=== PATIENT | female | born 2005 | race Caucasian/White ===

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

== ENCOUNTER 2024-01-02 09:25 | Outpatient (AMB) | payer OTHER, SELFPAY ==
--- NOTE | 2024-01-02 09:29 | MHC.OFFVIS ---
Intake Visit Reasons: Enlarging fibroadenoma Intake Note: Patient scheduled today's appointment with concerns about enlarging fibroadenoma on Rt br. Patient c/o: stinging sensation. Denies pain. Currently breast feeding. Stabilizer Operator Required: No Accompanied by: Adebayo mcknightienadrianna Allergies No Known Allergies Allergy (Verified 01/02/24 09:34) HPI Comments Details: Patient presents with her significant other and her infant child. Patient was seen last year for a symptomatic enlarging right breast fibroadenoma. This was to have been excised in February last year but the patient was unexpectedly found to be and the procedure was canceled. Sensory an early time, the mass has markedly increased in size and become more symptomatic and the patient would like to have it excised. Her is 3-month-old and she plans on completing breast-feeding when an antritis 6-month-old. The plan is to arrange for excision at that time. [facility] Medical History Missed menses Positive test test negative Anxiety and depression Surgical History (Updated 01/02/24 @ 09:35 by MARK Pride) [place] teeth extracted No pertinent past surgical history Family History Mother No problems noted. Father No problems noted. Social History Household Members: Family Household Members Other:: Lives with mom, step-dad and brother (Colin Saucedo). Pets: 1 dog Both parents involved: Yes (sees dad on weekends) Alcohol intake: never Patient Tobacco Use Status: Never used Tobacco Cognitive needs: No Hearing needs: No Vision needs: No Female Reproductive History Menstrual Age of Menarche: 11 Physical Exam Chest Other: Right breast fibroadenoma has definitely increased in size since last year. No other breast pathology demonstrated bilaterally. No cervical periclavicular axillary adenopathy bilaterally. GI Other: Abdomen is soft, corpulent, benign Assessment & Plan Assessment & Plan (1) Fibroadenoma of right breast: Code(s): D24.1 - Benign neoplasm of right breast Category: Surgical Plan Current plan is to have the patient revisit us in 3 months' time to make arrangements for excision of her symptomatic enlarging right breast fibroadenoma. All questions answered. Patient will see me at that time or p.r.n.. Coding Level of Care Code Est Pt Level 4 (86610) Diagnoses 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
== END 2024-01-02 09:43 | disposition home or self-care (01) ==
PROVIDERS: PCP Pediatrics; Visit Provider Surgery
DX: D24.1 Benign neoplasm of right breast (principal)
CPT/HCPCS: 99214

== ENCOUNTER → 2024-01-02 09:25 | Outpatient (BNVA) | payer OTHER, SELFPAY | PROVIDERS: PCP Pediatrics; Visit Provider Surgery | DX: D24.1 Benign neoplasm of right breast (principal) | CPT/HCPCS: 99212 ==

== ENCOUNTER 2024-08-17 11:30 | Outpatient (AMB) | payer OTHER, SELFPAY ==
--- NOTE | 2024-08-17 11:58 | MHC.OFFWIV ---
Intake Vital Signs 08/17/24 12:06 Weight 214 lb BP 110/74 Blood Pressure Location Rt brachial Position Sitting Pulse 98 Pulse Source Pulse Oximeter Pulse Oximetry (%) 98 Oxygen Delivery Method Room Air Intake Visit Reasons: EP Lump in RT breast Intake Note: Patient here for lump on right breast that has been present for about 48 hrs, it started w/some redness around it and is no longer red but is slightly tender. Patient Tobacco Use Status: Never used Tobacco Allergies No Known Allergies Allergy (Verified 08/17/24 12:07) Do you need a note to return to daycare/school/sports/work: No HPI EP Lump in RT breast HPI Details Patient here for lump on right breast that has been present for about 48 hrs, it started w/some redness around it and is no longer red but is slightly tender. [facility] Medical History Missed menses Positive test test negative Anxiety and depression Surgical History (Updated 01/02/24 @ 09:35 by MARK Pride) [place] teeth extracted No pertinent past surgical history Family History Mother No problems noted. Father No problems noted. Social History Household Members: Family Household Members Other:: Lives with mom, step-dad and brother (Colin Saucedo). Pets: 1 dog Both parents involved: Yes (sees dad on weekends) Alcohol intake: never Patient Tobacco Use Status: Never used Tobacco Cognitive needs: No Hearing needs: No Vision needs: No Female Reproductive History Menstrual Age of Menarche: 11 Physical Exam Vital Signs: Last Vital Signs Pulse 98 08/17/24 12:06 BP 110/74 08/17/24 12:06 Pulse Ox 98 08/17/24 12:06 Oxygen Delivery Method Room Air 08/17/24 12:06 Results Reviewed Results Reviewed: Laboratory Last Values Influenza Type A (PCR) NEGATIVE (Negative) 08/17/24 11:30 Influenza Type B (PCR) NEGATIVE (Negative) 08/17/24 11:30 RSV RNA Qual (PCR) NEGATIVE (Negative) 08/17/24 11:30 SARS-CoV-2 RNA (RT-PCR) NEGATIVE (Negative) 08/17/24 11:30 Assessment & Plan Assessment & Plan Orders: Orders SARS-CoV2/FLU/RSV Today J06.9 - Acute upper respiratory infection, unspecified Coding
[2024-08-17 12:06] VITALS: BP 110/74; PULSE 98; O2SAT 98
[2024-08-17 15:12] LABS: Influenza A PCR NEGATIVE (Negative); Influenza B PCR NEGATIVE (Negative); Resp Syncy Virus RNA Qual PCR NEGATIVE (Negative); SARS COV2 PCR INHOUSE NEGATIVE (Negative)
== END 2024-08-17 12:49 | disposition home or self-care (01) ==
PROVIDERS: PCP Pediatrics; Visit Provider Physician Assistant Medical
DX: J06.9 Acute upper respiratory infection, unspecified (principal)

== ENCOUNTER → 2024-08-17 11:30 | Outpatient (BNVA) | payer OTHER, SELFPAY | PROVIDERS: PCP Pediatrics; Visit Provider Physician Assistant Medical | DX: J06.9 Acute upper respiratory infection, unspecified (principal); N64.4 Mastodynia | CPT/HCPCS: 0241U ==

== ENCOUNTER 2024-08-20 13:13 | Outpatient (AMB) | payer OTHER, SELFPAY ==
--- NOTE | 2024-08-20 13:23 | MHC.OFFVIS ---
Vital Signs 08/20/24 13:31 Weight 215 lb BP 128/60 Blood Pressure Location Rt brachial Position Sitting Pulse 100 Intake Visit Reasons: lump (R) Breast Intake Note: Patient scheduled today's appointment with concerns Rt breast lump. Reports site previously biopsied and was told results were benign. Patient felt a lump about 4-5 days. Was told by walk in clinic physician fibromadenoma could be growing. Patient still breast feeding. Patient c/o: rt br feels tender and bruised. Denies redness, rash. Snow Ranger Required: No Accompanied by: baby daughter Allergies No Known Allergies Allergy (Verified 08/20/24 13:31) HPI Comments Details: Patient is here for evaluation of a right upper outer quadrant fibroadenoma which has been diagnosed with tissue sampling in the past. She is currently and noticed that is becoming more symptomatic. No other breast symptoms associated with this area. As noted above patient is currently lactating. [facility] Medical History Missed menses Positive test test negative Anxiety and depression Surgical History (Updated 01/02/24 @ 09:35 by MAKR Pride) [place] teeth extracted No pertinent past surgical history Family History Mother No problems noted. Father No problems noted. Social History Household Members: Family Household Members Other:: Lives with mom, step-dad and brother (Colin Saucedo). Pets: 1 dog Both parents involved: Yes (sees dad on weekends) Alcohol intake: never Patient Tobacco Use Status: Never used Tobacco Cognitive needs: No Hearing needs: No Vision needs: No Female Reproductive History Menstrual Age of Menarche: 11 Physical Exam Vital Signs: Last Vital Signs Pulse 100 08/20/24 13:31 BP 128/60 08/20/24 13:31 Chest Other: No cervical periclavicular or axillary adenopathy bilaterally. Left breast negative. Right breast demonstrates at the area of roughly 11:00 o'clock the fibroadenoma which patient thinks has increased in size. Suspicious roughly 2 cm. Remainder of breast exam negative. Assessment & Plan Assessment & Plan (1) Fibroadenoma of right breast: Code(s): D24.1 - Benign neoplasm of right breast Category: Surgical Plan Patient thinks she will continue to breastfeed/lactate until September. At present, was treated conservatively. She will see me at the end of October to give her breast time to recover and received and then indirect further therapy regarding this fibroadenoma based on her symptomatology. During this interim, should be any other symptoms including pain, increase in size of the lesion skin changes etc. patient he has been instructed to contact the office otherwise she will see me as directed. Coding Level of Care Code Est Pt Level 4 (20435) Diagnoses 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
[2024-08-20 13:31] VITALS: BP 128/60; PULSE 100
== END 2024-08-20 13:38 | disposition home or self-care (01) ==
PROVIDERS: PCP Pediatrics; Visit Provider Surgery
DX: D24.1 Benign neoplasm of right breast (principal)
CPT/HCPCS: 99214

== ENCOUNTER → 2024-08-20 13:13 | Outpatient (BNVA) | payer OTHER, SELFPAY | PROVIDERS: PCP Pediatrics; Visit Provider Surgery | DX: D24.1 Benign neoplasm of right breast (principal) | CPT/HCPCS: 99212 ==

== ENCOUNTER 2024-12-10 13:28 | Outpatient (AMB) | payer OTHER, SELFPAY ==
--- NOTE | 2024-12-10 13:36 | A.OFFVIS_ITS ---
Vital Signs 12/10/24 13:40 Weight 220 lb BP 117/60 Blood Pressure Location Rt brachial Position Sitting Pulse 88 Intake Visit Reasons: Breast exam~ Rt br lump Intake Note: Patient here for breast exam. No longer breast feeding. Patient c/o: no concerns. Denies br rash, nipple discharge. Artist Representative Required: No Accompanied by: baby son Allergies No Known Allergies Allergy (Verified 08/20/24 13:31) HPI Comments Details: Patient presents for follow-up for a biopsy-proven right upper outer quadrant breast fibroadenoma. She is currently her baby who was approached in 1 year's age. The right breast lesion is essentially the same according to the patient but he would like to consider having a removed once her is completed. No other new breast symptoms or complaints. [facility] Medical History Missed menses Positive test test negative Anxiety and depression Surgical History (Updated 01/02/24 @ 09:35 by MARK Pride) [place] teeth extracted No pertinent past surgical history Family History Mother No problems noted. Father No problems noted. Social History Household Members: Family Household Members Other:: Lives with mom, step-dad and brother (Colin Saucedo). Pets: 1 dog Both parents involved: Yes (sees dad on weekends) Alcohol intake: never Patient Tobacco Use Status: Never used Tobacco Cognitive needs: No Hearing needs: No Vision needs: No Female Reproductive History Menstrual Age of Menarche: 11 Physical Exam Vital Signs: Last Vital Signs Pulse 88 12/10/24 13:40 BP 117/60 12/10/24 13:40 Chest Other: Left breast exam currently patient was . Left breast no obvious mass, discharge, adenopathy or skin changes. Right breast upper-outer quadrant demonstrates roughly 3 x 2 cm mass status quo from last exam. No other skin changes or periclavicular axillary adenopathy. GI Other: Abdomen Lenn[place], soft, benign Assessment & Plan Assessment & Plan (1) Fibroadenoma of right breast: Code(s): D24.1 - Benign neoplasm of right breast Category: Surgical Plan Patient will contact me when she is ready to have this excised. All questions answered. She is encouraged to do occasional self-breast exams. Coding Level of Care Code Est Pt Level 4 (06496) Diagnoses 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
[2024-12-10 13:40] VITALS: BP 117/60; PULSE 88
--- OUTSIDE RECORDS SUMMARY | 2024-12-10 15:56 | XMS_ITS ---
Author Name [facility] Organization Unknown Care Team Organization Name Specialty Phone Email Start Date End Da te [employer] 12/16/2023
== END 2024-12-10 13:54 | disposition home or self-care (01) ==
LOC: HO.HGS 13:29
PROVIDERS: PCP Pediatrics; Visit Provider Surgery
DX: D24.1 Benign neoplasm of right breast (principal)
CPT/HCPCS: 99214

== ENCOUNTER → 2024-12-10 13:28 | Outpatient (BNVA) | payer OTHER, SELFPAY | PROVIDERS: PCP Pediatrics; Visit Provider Surgery | DX: D24.1 Benign neoplasm of right breast (principal) | CPT/HCPCS: 99212 ==

== ENCOUNTER 2025-02-06 13:11 | Emergency (ER) | payer OTHER, SELFPAY ==
--- NOTE | 2025-02-06 13:14 | ECG_ITS ---
Test Reason : CHST PAIN Blood Pressure : */* mmHG Vent. Rate : 92 BPM Atrial Rate : 92 BPM P-R Int : 122 ms QRS Dur : 102 ms QT Int : 356 ms P-R-T Axes : 12 2 28 degrees QTcB Int : 440 ms Normal sinus rhythm Normal ECG No previous ECGs available Referred By: Generic ED Physician Electronically Signed By: Saurabh Umanzor
[2025-02-06 13:16] VITALS: BP 135/92; PULSE 100; RESP 18; TEMP 36.4; O2SAT 98; BMI 35.2
--- NOTE | 2025-02-06 13:16 | ED_ITS ---
HPI - General Adult General Chief complaint: Chest Pain Stated complaint: Chest pain, sent from urgent care Time Seen by Provider: 02/06/25 17:26 Source: patient Mode of arrival: ambulatory Limitations: no limitations History of Present Illness ED Provider: HPI narrative: pt 19 years old with history of anxiety been having mid chest pain for last few months happening mostly in the nighttime was seen in the urgent care center sent the patient here for further evaluation no family history of sudden cardiac no history of shortness a breath no history of leg swelling patient does have some acid problems not taking any medication Related Data Home Medications ?Medication ?Instructions ?Recorded ?Confirmed desogestrel 0.15 mg-ethinyl 1 tab PO DAILY 08/20/24 estradiol 0.03 mg tablet (Enskyce) Previous Rx's ?Medication ?Instructions ?Recorded omeprazole 40 mg capsule,delayed 40 mg PO DAILY #30 ca ps 02/06/25 release Allergies Allergy/AdvReac Type Severity Reaction Status Date / Time No Known Allergies Allergy Verified 02/06/25 13:20 Review of Systems 2 Review of Systems: Yes all other systems are reviewed and are negative [facility] Past Medical History Medical History (Updated 02/06/25 @ 17:52 by Simba Martinez MD) Missed menses Positive test test negative Anxiety and depression Surgical History (Updated 01/02/24 @ 09:35 by MARK Pride) [place] teeth extracted No pertinent past surgical history Family History Family History Mother No problems noted. Father No problems noted. Social History Social History Household Members: Family Household Members Other:: Lives with mom, step-dad and brother (Colin Saucedo). Pets: 1 dog Alcohol intake: never Patient Tobacco Use Status: Never used Tobacco Advance Directives: No Advance Directives Information Provided: Yes Cognitive needs: No Hearing needs: No Vision needs: No Physical Exam ED Vital Signs: Vital Signs - 24 hr 02/06/25 13:16 02/06/25 17:17 02/06/25 17:57 Temperature 97.5 F 98.1 F 98.4 F Pulse Rate 100 86 82 Respiratory Rate 18 20 15 Blood Pressure 135/92 H 118/72 118/72 Pulse Oximetry 98 100 98 Oxygen Delivery Method Room Air Room Air Room Air BMI result Body Mass Index 35.2 Appearance: Alert. Oriented X3. No acute distress. Eyes: no pallor or icterus ENT: Pharynx normal Oral Mucosa moist tympanic membrane intact no erythema, Neck: Normal inspection. Neck supple. CVS: Normal heart rate and rhythm. Pulses normal. Respiratory: No respiratory distress. Equal air entry bilateral, no wheezing/rales/rhonchi Abd: soft, not tender Skin: Skin warm and dry. Normal skin color. Normal skin turgor. Extremities: No lower extremity edema, no calf tenderness Neuro: Oriented X 3. Course Course Course Narrative: 02/06/25 1320 ALAN Feldman This is a Rapid Medical Examination (RME) performed by Derik Montenegro PA-C in triage. Full HPI, ROS, assessment and treatment plan per primary provider in the Main ED. Hx: 19 yo F hx anxiety, depression, eczema here w/ intermittent chest pain x2 weeks. pain began to central chest, now moving to right upper chest/ shoulder. pain occurs primarily at night, sometimes pressure sometimes sharp sensation. drinks caffeine daily. feels like her anxiety, not on meds for this. seen at with normal EKG , sent here for cardiac labs. no personal cardiac hx. PE/vitals: well appearing Plan: ekg, labs Medical Decision Making Medical Decision Making [facility] Narrative: Patient has atypical chest pain with heart score of 0 with normal EKG normal troponin likely from esophageal spasm from acid reflux patient advised to take Prilosec and follow with PCP Differential Diagnosis Differential Diagnoses: The differential diagnosis associated with the presentation includes Lab Data [facility] Lab Attestation statement: I reviewed the patient's lab results. 02/06/25 13:41 02/06/25 13:41 Labs: Lab Results 02/06/25 Range/Units 13:41 WBC 9.0 (4.8-10.8) X10*3/uL RBC 4.73 (4.20-5.50) X10*6/uL Hgb 13.4 (12.0-16.0) g/dl Hct 39.6 (37.0-47.0) % MCV 83.7 (80.0-98.0) fL MCH 28.3 (27.0-33.0) pg MCHC 33.8 (31.0-35.0) g/dl RDW 12.5 (11.0-16.0) % Plt Count 264 (160-400) X10*3/uL MPV 10.2 (9.4-12.3) fL Immature Gran % (Auto) 0.4 (0.0-0.4) % Neut % (Auto) 70.1 (45-73) % Lymph % (Auto) 22.9 (20-40) % [place] % (Auto) 4.2 (2-11) % Eos % (Auto) 1.6 (0-4) % Baso % (Auto) 0.8 (0-2) % Lymph # (Auto) 2.1 (1.2-4.9) X10*3/uL [place] # (Auto) 0.4 (0.1-1.2) X10*3/uL Eos # (Auto) 0.1 (0.0-0.4) X10*3/uL Baso # (Auto) 0.1 (0.0-0.2) X10*3/uL Abs Immat Gran (auto) 0.04 H (0.00-0.03) X10*3/uL Absolute Neuts (auto) 6.3 (2.0-8.3) x10*3/uL Absolute Nucleated RBC 0.000 (0.0-0.012) X10*3/uL Nucleated RBC % (auto) 0.0 (0.0-0.2) /100WBC Sodium 141 (135-145) mmol/L Potassium 3.8 (3.3-5.1) mmol/L Chloride 109 H (96-108) mmol/L Carbon Dioxide 23 (22-29) mmol/L Anion Gap 13 (12-20) BUN 10 (9-16) mg/dL Creatinine 0.71 (0.5-1.4) mg/dL Estim Creat Clear Calc 149.8 Estimated GFR > 60 Random Glucose 108 (60-115) mg/dL Calcium 9.8 (8.4-10.2) mg/dL Magnesium 1.9 (1.6-2.6) mg/dL Total Bilirubin 0.4 (0.0-1.0) mg/dL AST 20 (5-31) U/L ALT 11 (0-31) U/L Alkaline Phosphatase 117 (39-117) U/L Troponin I High Sens < 2.7 (<3.5-17.0) ng/L Total Protein 7.4 (6.5-8.0) g/dL Albumin 4.6 (3.5-5.0) g/dL Independent Interpretation I performed an independent interpretation of an: EKG (Normal sinus rhythm with heart rate 92 beats per minute normal intervals normal axis no acute ST-T no acute ischemia) Discharge Plan Discharge Clinical Impression: Atypical chest pain Patient Disposition: Home, Self-Care Instructions: Chest Pain (ED) Additional Instructions: Your chest pain is unlikely from the heart likely from gastric reflux Take Prilosec daily as prescribed Follow up with your PCP Avoid fried/spicy foods Prescriptions: New omeprazole 40 mg capsule,delayed release(DR/EC) 40 mg PO DAILY Qty: 30 0RF No Action desogestrel-ethinyl estradiol [Enskyce] 0.15-0.03 mg tablet 1 tab PO DAILY Print Language: Monegasque
[2025-02-06 13:45] LABS: MANUAL DIFF FLAG NO
[2025-02-06 13:48] LABS: Basophils Absolute Auto 0.1 X10*3/uL (0.0-0.2); Basophils Percent Auto 0.8 % (0-2); Eosinophils Absolute Auto 0.1 X10*3/uL (0.0-0.4); Eosinophils Percent Auto 1.6 % (0-4); Hematocrit 39.6 % (37.0-47.0); Hemoglobin 13.4 g/dl (12.0-16.0); Imm Gran Abs Auto 0.04 X10*3/uL (0.00-0.03); Imm Gran Pct Auto 0.4 % (0.0-0.4); Lymphocytes Absolute Auto 2.1 X10*3/uL (1.2-4.9); Lymphocytes Percent Auto 22.9 % (20-40); Mean Corpuscular HGB Conc 33.8 g/dl (31.0-35.0); Mean Corpuscular Hemoglobin 28.3 pg (27.0-33.0); Mean Corpuscular Volume 83.7 fL (80.0-98.0); Mean Platelet Volume 10.2 fL (9.4-12.3); Monocytes Absolute Auto 0.4 X10*3/uL (0.1-1.2); Monocytes Percent Auto 4.2 % (2-11); Neutrophils Absolute Auto 6.3 x10*3/uL (2.0-8.3); Neutrophils Percent Auto 70.1 % (45-73); Platelet Count 264 X10*3/uL (160-400); Red Blood Count 4.73 X10*6/uL (4.20-5.50); Red Cell Distribution Width 12.5 % (11.0-16.0)
[2025-02-06 14:02] LABS: Alanine Aminotransferase 11 U/L (0-31); Albumin Level 4.6 g/dL (3.5-5.0); Alkaline Phosphatase 117 U/L (39-117); Anion Gap 13 (12-20); Aspartate Amino Transferase 20 U/L (5-31); Bilirubin Total 0.4 mg/dL (0.0-1.0); Blood Urea Nitrogen 10 mg/dL (9-16); Calcium 9.8 mg/dL (8.4-10.2); Carbon Dioxide 23 mmol/L (22-29); Chloride 109 mmol/L (96-108); Creatinine Clr Calc Pharmacy 149.8; Estimated Glomerular Filt Rate > 60; Glucose Random 108 mg/dL (60-115); Magnesium 1.9 mg/dL (1.6-2.6); Potassium 3.8 mmol/L (3.3-5.1); Sodium 141 mmol/L (135-145); Total Protein 7.4 g/dL (6.5-8.0)
[2025-02-06 14:11] LABS: Troponin-I High Sensitivity < 2.7 ng/L (<3.5-17.0)
[2025-02-06 17:17] VITALS: BP 118/72; PULSE 86; RESP 20; TEMP 36.7; O2SAT 100
[2025-02-06 17:57] VITALS: BP 118/72; PULSE 82; RESP 15; TEMP 36.9; O2SAT 98
[2025-02-06 18:10] VITALS: BP 118/72; PULSE 82; RESP 15; TEMP 36.9; O2SAT 98
== END 2025-02-06 18:11 | disposition home or self-care (01) ==
PROVIDERS: Physician Assistant Medical; Emergency Provider Internal Medicine; PCP Nurse Practitioner Family
DX: R07.89 Other chest pain (principal); M25.511 Pain in right shoulder; F41.8 Other specified anxiety disorders; Z79.899 Other long term (current) drug therapy
CPT/HCPCS: 36415; 80053; 83735; 84484; 85025; 93005; 99283; 99284

== ENCOUNTER → 2025-02-06 13:14 | Outpatient (BNV) | payer OTHER, SELFPAY | PROVIDERS: Emergency Provider Internal Medicine; PCP Nurse Practitioner Family; Visit Provider Internal Medicine Cardiovascular Disease | DX: R07.9 Chest pain, unspecified (principal) | CPT/HCPCS: 93010 ==

== ENCOUNTER 2025-02-10 09:22 | Outpatient (AMB) | payer OTHER, SELFPAY ==
--- NOTE | 2025-02-10 09:25 | MHC.PC.OV ---
Vital Signs 02/10/25 09:30 Height 5 ft 6 in Weight 220 lb BMI 35.5 BP 102/68 Blood Pressure Location Rt brachial Position Sitting Respiration 12 Pulse 78 Pulse Source Pulse Oximeter Temp 97.6 F Temp Source Oral Pulse Oximetry (%) 98 Oxygen Delivery Method Room Air Intake Visit Reasons: ER f/u from [facility] for Chest Pain Intake Note: [facility] ER Follow up. Patient also c/o eczema all over her body. Box Sealing Machine Feeder Required: No Allergies No Known Allergies Allergy (Verified 02/10/25 09:41) Medication List - Last Reconciled 02/10/25 by IVA Cox No Known Home Meds Tobacco use date assessed: 02/10/25 Dental Screening Dental Screen Date: 02/10/25 Did you have a dental visit in the last 12 months?: Yes Did you have a dental problem in the last 6 months where you did not have access to dental care?: No Was dental information given to patient?: Patient has dentist HPI HPI Comments History of Present Illness Details 19 Y/O F with Eczema, MDD, NATALI, GERD Social: in school, 1 dtr, age 1 Surgery: none Health Maintenance Tdap Pap Specialist None Here today as new patient to [facility], for HDF and for a CPE Went to [facility] ED 02/06/25 for atypical chest pain, found to be GERD. She was rx'd omeprazole 40mg however she did not start as she is Reports that her sx are well controlled, has known dietary triggers and is avoiding them w/ good effects Eczema - used triamcinolone in the past with + effect, needs refill LMP - 3 days ago, regular, not on OCP Denies chance of current R breast fibroadenoma needs to be removed, plans to have this done once done breast feeding had some swollen lymphnodes R neck that have resolved; admits anxiety and wants these examined today MDD/NATALI denies si/hi. not on meds; declined tx. Exam: General: Well developed, well nourished, in no acute distress. Appears stated age. Head: Normocephalic, atraumatic. Eyes: Pupils are equal, round and reactive to light and accommodation. Conjunctivae are clear. Vision grossly normal. Ears: TMs clear AU, EACS WNL Nose: Patent, without discharge. Mouth: There are no ulcers or lesions noted. No inflammation, no post nasal drip, no plaques nor exudates. Neck: Supple, no adenopathy or thyromegaly. Lungs: Clear to auscultation bilaterally. No rales, rhonchi or wheeze noted. Good air flow in all vazquez. Heart: Regular rate and rhythm. No murmurs, click, rubs or gallops are noted. Abdomen: Bowel sounds present in all quadrants. The abdomen is soft, nontender, with no masses or organomegaly noted. No hernias are noted. Musculoskeletal: Joints are nontender, without swelling, redness, or effusions. Range of motion is observed to be normal. Pulses: Peripheral pulses are equal and palpable bilaterally. Extremities: No clubbing, cyanosis nor edema is noted. Neurologic: Gait and station normal. Cranial Nerves 2-12 intact. Motor strength grossly symmetrical and intact. No sensory loss. Balance normal. Skin: No rashes, ulcers, or lesions noted. Turgor is good. Skin color is good. Hair and nails are without abnormalities. Eczema back of back and AC bilat Psych: Normal eye contact, affect and mood appropriate, and normal interactions. Patient is alert and appropriate to context. Plan: Avoid dietary triggers ok to use tums reviewed [facility] with PPI use, ok to use Omeprazole 20mg Triamcinolone RX sent RTO 1 year CPE sooner PRN Total time spent caring for the patient today was 40 minutes. This includes time spent before the visit reviewing the chart, time spent during the visit, and time spent after the visit on documentation, reviewing laboratory results, diagnostic imaging, medications, performing a medically necessary evaluation, counseling on diagnoses, care coordination, ordering appropriate tests, ordering appropriate medications, review of tests performed by other providers, reporting test results with the patient, communication with other healthcare providers. [facility] Medical History (Updated 02/10/25 @ 10:12 by MACY Cox) Anxiety and depression Surgical History (Updated 01/02/24 @ 09:35 by MARK Pride) Byron teeth extracted No pertinent past surgical history Family History Mother No problems noted. Father No problems noted. Social History Household Members: Family Household Members Other:: Lives with mom, step-dad and brother (Colin Saucedo). Pets: 1 dog Both parents involved: Yes (sees dad on weekends) Housing: House Alcohol intake: never Patient Tobacco Use Status: Never used Tobacco e-Cigarette/Vaping Use: Never Used Current occupational status: student Cognitive needs: No Hearing needs: No Vision needs: No Female Reproductive History Menstrual Age of Menarche: 11 Questionnaire PHQ-9 Over the last 2 weeks, how often have you been bothered by any of the following problems? 1. Little interest or pleasure in doing things: more than half the days 2. Feeling down, depressed, or hopeless: several days 3. Trouble falling or staying asleep, or sleeping too much: nearly every day 4. Feeling tired or having little energy: more than half the days 5. Poor appetite or overeating: nearly every day 6. Feeling bad about yourself - or that you are a failure or have let yourself or your family down: not at all 7. Trouble concentrating on things, such as reading the newspaper or watching television: not at all 8. Moving or speaking so slowly that other people could have noticed. Or the opposite - being so fidgety or restless that you have been moving around a lot more than usual: not at all 9. Thoughts that you would be better off or of hurting yourself in some way: not at all Total score: 11 Depression Screening Interpretation: Positive Depression Screening Follow-up: Existing condition and Declines treatment Depression Screening Done: Yes 33020 - PHQ-9 Billing: Yes Source: Developed by Drs. José Boo, Giselle Whitney, Todd Beasley and colleagues, with an educational papo from [employer]. Thrive Questionnaire Date Thrive assessed: 02/10/25 I am a: Patient What is your living situation today?: I have a steady place to live Within the past 12 months, did the food you bought not last and you didn't have the money to get more?: Sometimes True Within the past 12 months, did you worry whether your food would run out before you got money to buy more?: Sometimes True Do you have trouble paying for medicines?: No Do you have trouble getting transportation to medical appointments?: No Do you have trouble paying your heating and electricity bill?: No Do you have trouble taking care of your child, family member or friend?: Yes Do you have trouble with day-to-day activities such as bathing, preparing meals, shopping, managing finances, etc.?: Yes Are you currently unemployed and looking for a job?: Yes Are you interested in more education?: Yes Please select the resources that you would like help with: Childcare and Job search/training Currently or been in a relationship where the following occur: Controlled Emotionally THRIVE Score: 3 AUDIT C Alcohol Use Questionnaire (AUDIT-C) 1. How often do you have a drink containing alcohol?: Never 3. How often do you have six or more drinks on one occasion?: Never Total Score: 0 Score Reviewed/Action Taken: Yes NATALI-7 AMB Questionnaire NATALI-7 Date NATALI - 7 assessed: 02/10/25 Feeling nervous, anxious, or on edge: 1 = Several days Not being able to stop or control worryin = Several days Worrying too much about different things: 1 = Several days Trouble relaxin = Several days Being so restless that it is hard to sit still: 1 = Several days Becoming easily annoyed or irritable: 3 = Nearly every day Feeling afraid as if something awful might happen: 1 = Several days Total NATAIL-7 score (0-4 normal; 5-9 mild; 10-14 moderate; 15-21 severe): 9 Source: Developed by Drs. José Boo, Giselle Whitney, Todd Beasley and colleagues, with an educational papo from [employer]. NATALI-7 Assessment Billing NATALI-7 Assessment Tool: NATALI-7 Assessment 48360 Physical exam (Primary Care) Vital Signs: Last Vital Signs Temp 97.6 F 02/10/25 09:30 Pulse 78 02/10/25 09:30 Resp 12 02/10/25 09:30 BP 102/68 02/10/25 09:30 Pulse Ox 98 02/10/25 09:30 Oxygen Delivery Method Room Air 02/10/25 09:30 BMI result Body Mass Index 35.5 BMI Assessment/Plan discussion: High BMI High, discussed plan: lifestyle Tobacco/Smoking Status: Tobacco use Status Tobacco use date assessed 02/10/25 02/10/25 09:32 Patient Tobacco Use Status Never used Tobacco 02/10/25 09:32 e-Cigarette/Vaping Use Never Used 02/10/25 09:32 PHQ-9: PHQ-9 Score PHQ-9: Total score 11 02/10/25 09:32 Depression Screening Interpretation: Positive Depression Screening Follow-up: Existing condition and Declines treatment Thrive Assessment: Date of Thrive Assessment Date Thrive assessed 02/10/25 02/10/25 09:32 Currently or been in a relationship where the following occur: Controlled Emotionally Results Reviewed Results Reviewed: [address] [address] Emergency Department Note Signed Patient: Marisabel Tang MR#: [id number] : 2005 Acct:[id number] Age/Sex: 19 / F ADM Date: 02/06/25 Loc: HO.ED Date of Service: Attending Dr: cc: Dorothy HubbardP-BC~ HPI - General Adult General Chief complaint: Chest Pain Stated complaint: Chest pain, sent from urgent care Time Seen by Provider: 02/06/25 17:26 Source: patient Mode of arrival: ambulatory Limitations: no limitations History of Present Illness ED Provider: HPI narrative: pt 19 years old with history of anxiety been having mid chest pain for last few months happening mostly in the nighttime was seen in the urgent care center sent the patient here for further evaluation no family history of sudden cardiac no history of shortness a breath no history of leg swelling patient does have some acid problems not taking any medication Related Data Home Medications ?Medication ?Instructions ?Recorded ?Confirmed desogestrel 0.15 mg-ethinyl 1 tab PO DAILY 08/20/24 12/10/24 estradiol 0.03 mg tablet (Enskyce) Previous Rx's ?Medication ?Instructions ?Recorded omeprazole 40 mg capsule,delayed 40 mg PO DAILY #30 caps 02/06/25 release Allergies Allergy/AdvReac Type Severity Reaction Status Date / Time No Known Allergies Allergy Verified 02/06/25 13:20 Review of Systems Review of Systems: Yes all other systems are reviewed and are negative PMFSH Past Medical History Medical History (Updated 02/06/25 @ 17:52 by Simba Martinez MD) Missed menses Positive test test negative Anxiety and depression Surgical History (Updated 01/02/24 @ 09:35 by MARK Pride) Byron teeth extracted No pertinent past surgical history Family History Family History Mother No problems noted. Father No problems noted. Social History Social History Household Members: Family Household Members Other:: Lives with mom, step-dad and brother (Colin Saucedo). Pets: 1 dog Alcohol intake: never Patient Tobacco Use Status: Never used Tobacco Advance Directives: No Advance Directives Information Provided: Yes Cognitive needs: No Hearing needs: No Vision needs: No Physical Exam ED Vital Signs: Vital Signs - 24 hr 02/06/2513:16 02/06/2517:17 02/06/2517:57 Temperature 97.5 F 98.1 F 98.4 F Pulse Rate 100 86 82 Respiratory Rate 18 20 15 Blood Pressure 135/92 H 118/72 118/72 Pulse Oximetry 98 100 98 Oxygen Delivery Method Room Air Room Air Room Air BMI result Body Mass Index 35.2 Appearance: Alert. Oriented X3. No acute distress. Eyes: no pallor or icterus ENT: Pharynx normal Oral Mucosa moist tympanic membrane intact no erythema, Neck: Normal inspection. Neck supple. CVS: Normal heart rate and rhythm. Pulses normal. Respiratory: No respiratory distress. Equal air entry bilateral, no wheezing/rales/rhonchi Abd: soft, not tender Skin: Skin warm and dry. Normal skin color. Normal skin turgor. Extremities: No lower extremity edema, no calf tenderness Neuro: Oriented X 3. Course Course Course Narrative: 02/06/25 1320 ALAN Feldman This is a Rapid Medical Examination (RME) performed by Derik Montenegro PA-C in triage. Full HPI, ROS, assessment and treatment plan per primary provider in the Main ED. Hx: 19 yo F hx anxiety, depression, eczema here w/ intermittent chest pain x2 weeks. pain began to central chest, now moving to right upper chest/ shoulder. pain occurs primarily at night, sometimes pressure sometimes sharp sensation. drinks caffeine daily. feels like her anxiety, not on meds for this. seen at with normal EKG , sent here for cardiac labs. no personal cardiac hx. PE/vitals: well appearing Plan: ekg, labs Medical Decision Making Medical Decision Making [facility] Narrative: Patient has atypical chest pain with heart score of 0 with normal EKG normal troponin likely from esophageal spasm from acid reflux patient advised to take Prilosec and follow with PCP Differential Diagnosis Differential Diagnoses: The differential diagnosis associated with the presentation includes Lab Data [facility] Lab Attestation statement: I reviewed the patient's lab results. 02/06/25 13:41 02/06/25 13:41 Labs: Lab Results 02/06/25 Range/Units 13:41 WBC 9.0 (4.8-10.8) X10*3/uL RBC 4.73 (4.20-5.50) X10*6/uL Hgb 13.4 (12.0-16.0) g/dl Hct 39.6 (37.0-47.0) % MCV 83.7 (80.0-98.0) fL MCH 28.3 (27.0-33.0) pg MCHC 33.8 (31.0-35.0) g/dl RDW 12.5 (11.0-16.0) % Plt Count 264 (160-400) X10*3/uL MPV 10.2 (9.4-12.3) fL Immature Gran % (Auto) 0.4 (0.0-0.4) % Neut % (Auto) 70.1 (45-73) % Lymph % (Auto) 22.9 (20-40) % Nicollet % (Auto) 4.2 (2-11) % Eos % (Auto) 1.6 (0-4) % Baso % (Auto) 0.8 (0-2) % Lymph # (Auto) 2.1 (1.2-4.9) X10*3/uL Nicollet # (Auto) 0.4 (0.1-1.2) X10*3/uL Eos # (Auto) 0.1 (0.0-0.4) X10*3/uL Baso # (Auto) 0.1 (0.0-0.2) X10*3/uL Abs Immat Gran (auto) 0.04 H (0.00-0.03) X10*3/uL Absolute Neuts (auto) 6.3 (2.0-8.3) x10*3/uL Absolute Nucleated RBC 0.000 (0.0-0.012) X10*3/uL Nucleated RBC % (auto) 0.0 (0.0-0.2) /100WBC Sodium 141 (135-145) mmol/L Potassium 3.8 (3.3-5.1) mmol/L Chloride 109 H (96-108) mmol/L Carbon Dioxide 23 (22-29) mmol/L Anion Gap 13 (12-20) BUN 10 (9-16) mg/dL Creatinine 0.71 (0.5-1.4) mg/dL Estim Creat Clear Calc 149.8 Estimated GFR > 60 Random Glucose 108 (60-115) mg/dL Calcium 9.8 (8.4-10.2) mg/dL Magnesium 1.9 (1.6-2.6) mg/dL Total Bilirubin 0.4 (0.0-1.0) mg/dL AST 20 (5-31) U/L ALT 11 (0-31) U/L Alkaline Phosphatase 117 (39-117) U/L Troponin I High Sens < 2.7 (<3.5-17.0) ng/L Total Protein 7.4 (6.5-8.0) g/dL Albumin 4.6 (3.5-5.0) g/dL Independent Interpretation I performed an independent interpretation of an: EKG (Normal sinus rhythm with heart rate 92 beats per minute normal intervals normal axis no acute ST-T no acute ischemia) Discharge Plan Discharge Clinical Impression: Atypical chest pain Patient Disposition: Home, Self-Care Instructions: Chest Pain (ED) Additional Instructions: Your chest pain is unlikely from the heart likely from gastric reflux Take Prilosec daily as prescribed Follow up with your PCP Avoid fried/spicy foods Prescriptions: New omeprazole 40 mg capsule,delayed release(DR/EC) 40 mg PO DAILY Qty: 30 0RF No Action desogestrel-ethinyl estradiol [Enskyce] 0.15-0.03 mg tablet 1 tab PO DAILY Print Language: Kazakh Coding Level of Care Code New Pt Level 4 (52436) New Pt Prev Care 18-39yr(07627 Diagnoses Hospital discharge follow-up Z09 NATALI (generalized anxiety disorder) F41.1 Mild episode of recurrent major depressive disorder F33.0 Major depression episode severity: mild 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 Flexural eczema L20.82 Eczema type: flexural Obesity (BMI 30-39.9) E66.9 Gastroesophageal reflux disease without esophagitis K21.9 Esophagitis presence: without esophagitis Encounter for general adult medical examination with abnormal findings Z00.01 Additional Codes NATALI-7 Assessment Billing - NATALI-7 Assessment Tool: NATALI-7 Assessment 28254 ([id number]) PHQ-9 - 60140 - PHQ-9 Billing: Yes ([id number]) Assessment & Plan Assessment & Plan (1) Hospital discharge follow-up: Code(s): Z09 - Encounter for follow-up examination after completed treatment for conditions other than malignant neoplasm (2) NATALI (generalized anxiety disorder): Code(s): F41.1 - Generalized anxiety disorder Category: Medical (3) MDD (major depressive disorder), recurrent episode: Code(s): F33.9 - Major depressive disorder, recurrent, unspecified Category: Medical Qualifiers: Major depression episode severity: mild Qualified Code(s): F33.0 - Major depressive disorder, recurrent, mild (4) Fibroadenoma of right breast: Code(s): D24.1 - Benign neoplasm of right breast Category: Surgical (5) Eczema: Code(s): L30.9 - Dermatitis, unspecified Category: Medical Qualifiers: Eczema type: flexural Qualified Code(s): L20.82 - Flexural eczema (6) Obesity (BMI 30-39.9): Code(s): E66.9 - Obesity, unspecified Category: Medical (7) GERD (gastroesophageal reflux disease): Code(s): K21.9 - Gastro-esophageal reflux disease without esophagitis Category: Medical Qualifiers: Esophagitis presence: without esophagitis Qualified Code(s): K21.9 - Gastro-esophageal reflux disease without esophagitis (8) Encounter for general adult medical examination with abnormal findings: Onset Date: ~02/10/25 Code(s): Z00.01 - Encounter for general adult medical examination with abnormal findings Category: Medical Plan . Medications: New triamcinolone acetonide 0.1% 1 appl topical DAILY 60 mL 12RF Discontinued omeprazole Discontinued Reason: Patient no longer taking 40 mg PO DAILY 30 caps 0RF Patient Instructions: Walk-In Care (Urgent Care): We Make it Easy Walk-in for urgent medical issues such as: ? Seasonal Allergies ? Insect Bites ? Cough ? Diarrhea ? Acute Asthma Attacks ? Back, Knee or Joint Pain ? Ear Infection ? Fever without a Rash ? Headaches ? Nausea ? [place] Eye, Rash or Skin Irritation ? Sore Throat ? Sports Physicals ? Vomiting Most insurances are accepted. Patients do not need to be part of the [facility] to seek care at the walk-in clinic. Locations [facility] [place] [address] ? [phone] [facility] Walk-In Care in [place] provides services to ages 18 and over. Open Monday-Monday: 8 a.m. to 5 p.m. and Monday: 9 a.m. to 3 p.m.* *Hours may vary due to staffing availability. To confirm Walk-In Care hours in [place], please call [phone]. [address] [place] [id number] ? [phone] [facility] Walk-In Care in [place] provides services to ages 12 and over. Open Monday-Monday: 8 a.m. to 5 p.m. Hours may vary due to staffing availability. To confirm Walk-In Care hours in [place], please call [phone]. LABORATORY SERVICES: [facility] Lab ? Primary Location [address] [place] [address] Monday through Monday 6:00 AM ? 5:00 PM Monday 7:00 AM ? 11:00 AM* [phone] The [facility] Lab is centrally located near the front entrance of the [facility] for easy outpatient access. Convenient parking is provided for outpatients. *Hours may vary due to staffing availability. To confirm Laboratory hours for any location, please call [phone]. Offsite Location For your convenience, we offer offsite laboratory draw stations at the following locations: [address] [place] [address] ? [facility] [address], [address] Monday through Monday 7:30 AM ? 1:00 PM* [phone] *Hours may vary due to staffing availability. To confirm Laboratory hours for any location, please call [phone]. [place] ? Karishma Khan [address] Monday through Monday 6:00 AM ? 3:30 PM* Monday 6:30 AM ? 3 PM* [phone] *Hours may vary due to staffing availability. To confirm Laboratory hours for any location, please call [phone]. [address] [facility] Monday through Monday 7:30 AM ? 4:00 PM* [phone] *Hours may vary due to staffing availability. To confirm Laboratory hours for any location, please call [phone]. [address] [facility] Monday through 9:00 AM ? 4:00 PM* *Hours may vary due to staffing availability. To confirm Laboratory hours for any location, please call [phone]. Appointments are not necessary. Walk-ins are welcome. Like all the departments throughout the [facility], our Lab undergoes frequent reviews to ensure the quality and accuracy of test results, and our staff takes special pride in its status as a nationally accredited facility. Patient Portal: ONE PATIENT. ONE RECORD. BETTER CARE. [facility] has a fully integrated, cutting-edge mobile electronic health information system that has revolutionized the way we care for our patients and manage our organization. This system improves communication and coordination enabling us to provide safe, higher-quality care, and an overall positive experience for staff and patients. Our first priority, as always, is to deliver the highest quality care possible. The system is running in the background supporting that priority. This portal is for all [facility] services and practices. If you are experiencing any technical difficulties with enrolling or logging into the Patient Portal please complete the [facility] Patient Portal Technical Support Form. [facility] now offers a new secure on-line interactive tool for patients to review their health information ? ?Patient Portal. This interactive web portal will enable patients and their families to take an active role in their care by providing easy, secure access to their health information via the internet. The Patient Portal provides patients with instant access to their health information, including laboratory results, medications, allergies, demographic information, visit history, and more. In addition to managing their own care, parents and health care proxies with authorized consent will appreciate the ability to access the records of those individuals for whom they provide care. Please note: if you wish to gain access (Proxy) to another patient?s portal, you will be required to come to the Medical Records Department in person at [facility]. Both the patient giving proxy access and the proxy will need to provide photo identification and complete the appropriate authorization. The Patient Portal also allows track their appointments online. The [facility] Patient Portal also saves patients time by allowing them to submit updates to their demographic and contact information prior to their visits. Portal email notifications will also alert patients to any new activity on their portal, such as test results and new appointments. In order to initially enroll in the [facility] Patient Portal, you will need to enter some required information including the following: your [facility] Medical Record number your personal home email address name date of Please note: In order to enroll in the [facility] Patient Portal, we need to have your email address on file in your electronic medical record. ?The email address needs to be specific for one person (yourself) in order for your Portal enrollment to be successful. ?You can update your email address in person with our Registration staff when you are registering for a hospital visit. ?Otherwise, you will need to come to the Health Information Management (Medical Records) Department at [facility]. ?We are open from Monday ? Monday from 7:30 a.m. ? 4:30 p.m. ?You will be required to present a photo id. Once you have successfully enrolled in the Patient Portal, you will receive a one-time user id and password for the Portal, sent to your email address. ?This will allow you to log into the Patient Portal within 99 hrs and reset your own logon id and password, and define personal security questions. ?Once your permanent login and password have been set, you can log into the [facility] Patient Portal at any time via the blue button above or from the Portal Logon button on any page of the [facility] website. [facility] and [facility] encourage all of our patients to enroll in Patient Portal as it presents a valuable opportunity for patients and their families to actively participate in their care and stay healthy Welcome to [facility]. ?We look forward to working with you. Health screenings for women You should visit your health care provider from time to time, even if you are healthy. The purpose of these visits is to: Screen for medical issues Assess your risk for future medical problems Encourage a healthy lifestyle Update vaccinations and other preventive care services Help you get to know your provider in case of an illness Information Even if you feel fine, you should still see your provider for regular checkups. These visits can help you avoid problems in the future. For example, the only way to find out if you have high blood pressure is to have it checked regularly. High blood sugar and high cholesterol levels also may not have any symptoms in the early stages. A simple blood test can check for these conditions. There are specific times when you should see your provider or receive specific health screenings. The [place] Preventive Services Task Force publishes a list of recommended screenings. Below are screening guidelines for women ages 18 to 39. BLOOD PRESSURE SCREENING Your blood pressure should be checked at least once every 3 to 5 years if: Your blood pressure is in the normal range (top number less than 120 mm Hg and bottom number less than 80 mm Hg) You don't have risk factors for high blood pressure Ask your provider if you need your blood pressure checked more often if: The top number is 120 to 129 mm Hg or the bottom number is 70 to 79 mm Hg You have diabetes, heart disease, kidney problems, are overweight, or have certain other health conditions You have a first-degree relative with high blood pressure You are Black You had high blood pressure during a If the top number is 130 mm Hg or greater or the bottom number is 80 mm Hg or greater, this is considered stage 1 hypertension. Schedule an appointment with your provider to learn how you can reduce your blood pressure. Watch for blood pressure screenings in your area. Ask your provider if you can stop in to have your blood pressure checked. BREAST CANCER SCREENING Experts do not agree about the benefits of breast self-exams in finding breast cancer or saving lives. Talk to your provider about what is best for you. A screening mammogram is not recommended for most women under age 40. Your provider may discuss and recommend mammograms, MRI scans, or ultrasounds if you have an increased risk for breast cancer, such as: A mother or sister who had breast cancer at a young age (most often starting screening earlier than the age the close relative was diagnosed) You carry a high-risk genetic marker CERVICAL CANCER SCREENING Cervical cancer screening should start at age 21 years unless your provider advises otherwise. After the first test: Women ages 21 through 29 should have a Pap test every 3 years. Exoprts do not agree on whether HPV testing is recommended for this age group. Women ages 30 through 65 should be screened with either a Pap test every 3 years or the HPV test every 5 years or both tests every 5 years (called cotesting ). Women who have been treated for precancer (cervical dysplasia) should continue to have Pap tests for 20 years after treatment or until age 65, whichever is longer. If you have had your uterus and cervix removed (total hysterectomy), and you have not been diagnosed with cervical cancer or precancer (high grade cervical neoplasia), you do not need cervical cancer screening. CHOLESTEROL SCREENING Cholesterol screening should begin at: Age 45 for women with no known risk factors for coronary heart disease Age 20 for women with known risk factors for coronary heart disease Repeat cholesterol screening should take place: Every 5 years for women with normal cholesterol levels More often if changes occur in lifestyle (including weight gain and diet) More often if you have diabetes, heart disease, kidney problems, or certain other conditions DIABETES SCREENING You should be screened for diabetes starting at age 35 and then repeated every 3 years if you have no risk factors for diabetes. Screening may need to start earlier and be repeated more often if you have other risk factors for diabetes, such as: You have a first degree relative with diabetes. You are overweight or have obesity. You have high blood pressure, prediabetes, or a history of heart disease. Screening for diabetes should be done if you are planning to become and you are overweight and have other risk factors such as high blood pressure. DENTAL EXAM Go to the dentist once or twice every year for an exam and cleaning. Your dentist will evaluate if you need more frequent visits. EYE EXAM Have an eye exam every 5 to 10 years before age 40. If you have vision problems, have an eye exam every 2 years or more often if recommended by your provider. You should have an eye exam that includes an examination of your retina (back of your eye) at least every year if you have diabetes. IMMUNIZATIONS Commonly needed vaccines include: Flu shot: get one every year. COVID-19 vaccine: ask your provider what is best for you. Tetanus-diphtheria and acellular pertussis (Tdap) vaccine: have one at or after age 19 as one of your tetanus-diphtheria vaccines if you did not receive it as an adolescent. Tetanus-diphtheria: have a booster (or Tdap) every 10 years. Varicella vaccine: receive 2 doses if you never had chickenpox or the varicella vaccine. Hepatitis B vaccine: receive 2, 3, or 4 doses, depending on your exact circumstances. Measles, mumps, and rubella (MMR) vaccine: receive 1 to 2 doses if you are not already immune to MMR. Your provider can tell you if you are immune. Ask your provider about the human papillomavirus (HPV) vaccine if: You have not received the HPV vaccine in the past You have not completed the full vaccine series (you should catch up on this shot) Ask your provider if you should receive other immunizations if you have certain health problems that increase your risk for some diseases such as pneumonia. INFECTIOUS DISEASE SCREENING Women who are sexually active should be screened for chlamydia and gonorrhea up until age 25. Women 25 years and older should be screened for chlamydia and gonorrhea if at high risk. Screening for hepatitis C: All adults ages 18 to 79 should get a one-time test for hepatitis C. people should be screened at every . Screening for human immunodeficiency virus (HIV): All people ages 15 to 65 should get a one-time test for HIV. Depending on your lifestyle and medical history, you may also need to be screened for infections such as syphilis and HIV, as well as other infections. PHYSICAL EXAM All adults should visit their provider from time to time, even if they are healthy. The purpose of these visits is to: Screen for disease Assess your risk of future medical problems Encourage a healthy lifestyle Update your vaccinations and other preventive care services Maintain a relationship with a provider in case of an illness Your height, weight, and BMI should be checked at every exam. During your exam, your provider may ask you about: Depression and anxiety Diet and exercise Alcohol and tobacco use Safety issues, such as using seat belts, smoke detectors, and intimate partner violence Your medicines and risk for interactions SKIN SELF-EXAM Your provider may check your skin for signs of skin cancer, especially if you're at high risk, such as if you: Have had skin cancer before Have close relatives with skin cancer Have a weakened immune system OTHER SCREENING Talk with your provider about colon cancer screening if you have a strong family history of colon cancer or polyps, or if you have had inflammatory bowel disease or polyps yourself. Routine bone density screening of women under 40 is not recommended.
[2025-02-10 09:30] VITALS: BP 102/68; PULSE 78; RESP 12; TEMP 36.4; O2SAT 98; BMI 35.5
== END 2025-02-10 09:55 | disposition home or self-care (01) ==
LOC: HO.HMCFM 09:23
PROVIDERS: PCP Nurse Practitioner Family; Visit Provider Nurse Practitioner Family
DX: Z00.01 Encounter for general adult medical examination with abnormal findings (principal); K21.9 Gastro-esophageal reflux disease without esophagitis; Z09 Encounter for follow-up examination after completed treatment for conditions other than malignant neoplasm; F41.1 Generalized anxiety disorder; F33.0 Major depressive disorder, recurrent, mild; D24.1 Benign neoplasm of right breast; L20.82 Flexural eczema; E66.9 Obesity, unspecified

== ENCOUNTER → 2025-02-10 09:22 | Outpatient (BNVA) | payer OTHER, SELFPAY | PROVIDERS: PCP Nurse Practitioner Family; Visit Provider Nurse Practitioner Family | DX: Z00.01 Encounter for general adult medical examination with abnormal findings (principal); R07.9 Chest pain, unspecified; K21.9 Gastro-esophageal reflux disease without esophagitis; F41.1 Generalized anxiety disorder; F33.0 Major depressive disorder, recurrent, mild; D24.1 Benign neoplasm of right breast; L20.82 Flexural eczema; E66.9 Obesity, unspecified; Z68.35 Body mass index [BMI] 35.0-35.9, adult | CPT/HCPCS: 96127; 99202; 99385 ==